=== PATIENT | female | born 1995 | race African-American/Black ===

== ENCOUNTER 2016-08-31 13:30 | Emergency (ER) | payer OTHER ==
[2016-08-31 14:56] LABS: PH,URINE 6.5 (4.5-8); URINE APPEARANCE Clear; URINE BILIRUBIN Negative (NEGATIVE); URINE GLUCOSE (UA) Negative (NEGATIVE); URINE KETONE Negative (NEGATIVE); URINE LEUK ESTERASE Negative (NEGATIVE); URINE NITRITE Negative (NEGATIVE); URINE PROTEIN Negative (NEGATIVE); URINE UROBILINOGEN 0.2 E.U/dl (0.2-1.0)
[2016-08-31 15:00] LABS: URINE BLOOD TRACE (NEGATIVE); URINE COLOR YELLOW
[2016-08-31 15:27] LABS: URINE MUCUS 1+; URINE WBC 0-3 (3-5)
[2016-08-31 15:33] VITALS: BP 125/75; PULSE 90; TEMP 98.3; BMI 27.4
--- NOTE | 2016-08-31 16:23 | PDOC ---
History of Present Illness - General Chief Complaint: Pain Stated Complaint: ABDOMINAL PAIN Time Seen by Provider: 08/31/16 16:05 - History of Present Illness Initial Comments: 08/31/16 16:18 21-year-old female with a past medical history of asthma Last menstrual period-one week ago normal and on time Patient is complaining of one month of intermittent diffuse crampy abdominal pain and abdominal "growling" off and on associated with one month of occasional intermittent diarrhea, which is not bloody, and not black and tarry, and is associated occasional nausea without vomiting She did see her primary care physician, Dr. Gary Weir, and was put on Prilosec without relief She denies any associated fevers or chills, she denies any localization of the pain She states that she feels a little tired and a little dehydrated She denies any dysuria urgency or frequency She denies any vaginal spotting or bleeding or discharge She denies any other complaints at this time, she denies any other recent intercurrent illnesses Remainder the review of systems is negative Patient states that she has an appointment with Dr. Brock's office-GI- October 10 Past History - Past Medical History Allergies/Adverse Reactions: Allergies Allergy/AdvReac Type Severity Reaction Status Date / Time No Known Allergies Allergy Verified 08/31/16 15:11 Home Medications: Ambulatory Orders Fluticasone Propionate [Flovent Diskus] 100 mcg IH ASDIR 11/15/15 Levonorgestrel-Ethin Estradiol [Sronyx] 1 each PO ASDIR 11/15/15 Bismuth Subsalicylate [Pepto-Bismol -] 524 mg PO DAILY 02/14/16 Omeprazole Magnesium [Prilosec] 10 mg PO DAILY 08/31/16 Asthma: Yes GI Disorders: Yes (ACID REFLUX) Suicide Attempt (Hx): No - Immunization History Immunization Up to Date: Yes - Psycho/Social/Smoking Cessation Hx Anxiety: No Suicidal Ideation: No Smoking Status: No Smoking History: Never smoked Have you smoked in the past 12 months: No Number of Cigarettes Smoked Daily: 0 Information on smoking cessation initiated: No Hx Alcohol Use: No Drug/Substance Use Hx: No Substance Use Type: None Review of Systems - Review of Systems Able to Perform ROS?: Yes Comments:: 08/31/16 16:22 12 point review of systems is as per history of present illness and otherwise negative *Physical Exam - Vital Signs Last Vital Signs Temp Pulse Resp BP Pulse Ox 98.3 F 90 16 125/75 100 08/31/16 14:10 08/31/16 14:10 08/31/16 14:10 08/31/16 14:10 08/31/16 14:10 - Physical Exam Comments: 08/31/16 16:22 Physical exam Last Vital Signs Temp Pulse Resp BP Pulse Ox 98.3 F 90 16 125/75 100 08/31/16 14:10 08/31/16 14:10 08/31/16 14:10 08/31/16 14:10 08/31/16 14:10 GENERAL: The patient is awake, alert, and fully oriented, and in no apparent distress. HEAD: Normal with no signs of trauma. EYES: Sclera anicteric, conjunctiva normal ENT: Mucous membranes slightly dry NECK: Normal range of motion, supple LUNGS: Breath sounds equal, clear to auscultation bilaterally. No wheezes, and no crackles. HEART: Regular rate and rhythm, normal S1 and S2 without murmur, rub or gallop. ABDOMEN: Soft, nontender, normoactive bowel sounds. No guarding, no rebound. No masses appreciated. There is minimal upper midepigastric and minimal suprapubic tenderness to palpation without guarding or rebound There is no other abdominal tenderness at all There is no hepatosplenomegaly There is no CVA tenderness EXTREMITIES: Normal range of motion, no edema. No clubbing or cyanosis. No cords, erythema, or tenderness. NEUROLOGICAL: Cranial nerves II through XII grossly intact. Normal speech, normal gait. PSYCH: Normal mood, normal affect. SKIN: Warm, Dry, normal turgor, no rashes or lesions noted. 08/31/16 16:24 ED Treatment Course - LABORATORY CBC & Chemistry Diagram: 08/31/16 16:34 08/31/16 16:34 - ADDITIONAL ORDERS Additional order review: Laboratory Results 08/31/16 14:10 Urine Color Yellow Urine Appearance Clear Urine pH 6.5 Ur Specific [place] 1.020 Urine Protein Negative Urine Glucose (UA) Negative Urine Ketones Negative Urine Blood Trace H Urine Nitrite Negative Urine Bilirubin Negative Urine Urobilinogen 0.2 e.u/dl Ur Leukocyte Esterase Negative Urine RBC 3-5 Urine WBC 0-3 Ur Epithelial Cells 5-8 Urine Mucus 1+ Urine HCG, Qual Negative Medical Decision Making - Medical Decision Making 08/31/16 16:27 Will hydrate, and check electrolytes Chronic intermittent abdominal pain and chronic intermittent diarrhea I called Dr. Brock's office They will move her appointment up to September 02 at 2:45 PM 08/31/16 17:48 Patient feeling much better after 1 L of normal saline Laboratory Results - last 24 hr 08/31/16 08/31/16 08/31/16 14:10 16:34 16:34 WBC 6.1 RBC 4.53 Hgb 12.1 Hct 37.4 MCV 82.6 MCHC 32.3 RDW 13.1 Plt Count 399 MPV 7.5 Sodium 135 L Potassium 4.4 Chloride 102 Carbon Dioxide 28 Anion Gap 5 L BUN 13 Creatinine 0.8 Creat Clearance w eGFR > 60 Random Glucose 77 Calcium 8.8 Magnesium 1.9 Total Bilirubin 0.5 D AST 17 ALT 12 Alkaline Phosphatase 46 D Total Protein 6.7 Albumin 3.3 L Lipase 17 L Urine Color Yellow Urine Appearance Clear Urine pH 6.5 Ur Specific [place] 1.020 Urine Protein Negative Urine Glucose (UA) Negative Urine Ketones Negative Urine Blood Trace H Urine Nitrite Negative Urine Bilirubin Negative Urine Urobilinogen 0.2 e.u/dl Ur Leukocyte Esterase Negative Urine RBC 3-5 Urine WBC 0-3 Ur Epithelial Cells 5-8 Urine Mucus 1+ Urine HCG, Qual Negative Impression-chronic intermittent diarrhea and chronic intermittent abdominal cramping Patient has appointment now with GI on 09/02 *DC/Admit/Observation/Transfer Diagnosis at time of Disposition: Abdominal cramping, Intermittent diarrhea - Discharge Dispostion Disposition: HOME Condition at time of disposition: Good - Referrals Referrals: Samson Almodovar MD [Staff Physician] - - Patient Instructions Printed Discharge Instructions: Diarrhea, DI for Abdominal Pain-Adult Additional Instructions: Rest, increase fluids BRAT diet - bananas/rice/applesauce/tea-this may prevent some of the diarrhea Please follow-up with Dr Brock - you have an appointment on September 02 at 2: 45pm Followup with your primary care physician in 24-48 hours Return immediately if you worsen in any way - Post Discharge Activity Work/School Note: Back to Work
[2016-08-31] MEDS ORDERED: SODIUM CHLORIDE 1,000 ML IV SCH (16:30)
[2016-08-31 17:05] LABS: MCH 26.7 pg (25.7-33.7); MCHC 32.3 g/dl (32.0-36.0); MEAN CELL VOLUME 82.6 fl (80-96); MEAN PLT VOLUME 7.5 fl (7.5-11.1); PLATELET COUNT 399 K/MM3 (134-434); RDW 13.1 % (11.6-15.6); WHITE BLOOD COUNT 6.1 K/mm3 (4.0-10.0)
[2016-08-31 17:12] LABS: ALBUMIN 3.3 g/dl (3.5-5.0); ALK PHOS 46 U/L (32-92); ANION GAP 5 (8-16); BILIRUBIN,TOTAL 0.5 mg/dl (0.2-1.0); CALCIUM 8.8 mg/dl (8.4-10.2); CO2 28 mmol/L (22-28); CREATININE 0.8 mg/dl (0.6-1.3); GLUCOSE,RANDOM 77 mg/dl (74-106); MAGNESIUM 1.9 mg/dL (1.8-2.4); SGOT/AST 17 U/L (10-42); SGPT/ALT 12 U/L (10-40); TOT PROT 6.7 g/dl (6.4-8.3)
== END 2016-08-31 18:16 | disposition home or self-care (01) ==
LOC: FER 13:30
DX: R10.9 Unspecified abdominal pain (principal); R19.7 Diarrhea, unspecified; J45.909 Unspecified asthma, uncomplicated; K21.9 Gastro-esophageal reflux disease without esophagitis
CPT/HCPCS: 36415; 80053; 81003; 81015; 83690; 83735; 84703; 85027; 87086; 99283-25

== ENCOUNTER 2017-03-22 12:59 | Emergency (ER) | payer OTHER ==
[2017-03-22 13:13] VITALS: BP 118/75; PULSE 86; TEMP 99.3; BMI 28.1
[2017-03-22] MEDS ORDERED: FLUCONAZOLE 50 MG TABLET PO ONE (13:21)
[2017-03-22 13:23] LABS: URINE APPEARANCE Slightly; URINE BILIRUBIN Negative (NEGATIVE); URINE BLOOD 1+ (NEGATIVE); URINE GLUCOSE (UA) Negative (NEGATIVE); URINE KETONE Negative (NEGATIVE); URINE NITRITE Negative (NEGATIVE); URINE PROTEIN Trace (NEGATIVE)
[2017-03-22] MEDS ORDERED: FLUCONAZOLE 150 MG TABLET PO ONE (13:23)
[2017-03-22 13:26] LABS: URINE COLOR YELLOW; URINE LEUK ESTERASE 3+ (NEGATIVE)
--- NOTE | 2017-03-22 13:28 | PDOC ---
History of Present Illness - General Chief Complaint: Vaginal Sxs Stated Complaint: VAGINAL ITCHING Time Seen by Provider: 03/22/17 13:07 History Source: Patient Exam Limitations: No Limitations - History of Present Illness Travel History: No Initial Comments: 03/22/17 13:24 21 yF no pmhx presents with vaginal itching/burning and mild dysuria x 2 weeks, since her last period. Pt deneis any abdominal pain, fever/chills, n/v, diarrhea. Pt has noticed incrased whitish discharge in her panties recently. Pt has not used any medications. Pt states she did start using a new type of truck cleaner about 2 weeks ago. pt in a monogamous relationship with 1 partner, does not use protection regularly. Past History - Past Medical History Allergies/Adverse Reactions: Allergies Allergy/AdvReac Type Severity Reaction Status Date / Time No Known Allergies Allergy Verified 03/22/17 13:05 Home Medications: Ambulatory Orders Fluticasone Propionate [Flovent Diskus] 100 mcg IH ASDIR 11/15/15 Levonorgestrel-Ethin Estradiol [Sronyx] 1 each PO ASDIR 11/15/15 Bismuth Subsalicylate [Pepto-Bismol -] 524 mg PO DAILY 02/14/16 Omeprazole Magnesium [Prilosec] 10 mg PO DAILY 08/31/16 Asthma: Yes GI Disorders: Yes (ACID REFLUX) Suicide Attempt (Hx): No - Reproductive History Is Patient Now?: No - Immunization History Immunization Up to Date: Yes - Psycho/Social/Smoking Cessation Hx Anxiety: No Suicidal Ideation: No Smoking Status: No Smoking History: Never smoked Have you smoked in the past 12 months: No Number of Cigarettes Smoked Daily: 0 Information on smoking cessation initiated: No Hx Alcohol Use: No Drug/Substance Use Hx: No Substance Use Type: None Review of Systems - Review of Systems Able to Perform ROS?: Yes Comments:: 03/22/17 13:25 Constitutional - no reported Fever, Chills, Abd/GI: no reported abd pain, nausea, vomiting, blood per rectum, melena, diarrhea : +dysuria, vaginal itching/burning, discharge no reported frequency, skin - no reported bruising, erythema, rash *Physical Exam - Vital Signs Last Vital Signs Temp Pulse Resp BP Pulse Ox 99.3 F 86 18 118/75 99 08/07/17 13:00 03/22/17 13:00 03/22/17 13:00 03/22/17 13:00 03/22/17 13:00 - Physical Exam Comments: 03/22/17 13:27 GENERAL: The patient is awake, alert, and fully oriented, Nontoxic - in no acute distress. ABDOMEN: Soft, nontender, normoactive bowel sounds. No guarding, no rebound. No CVA tenderness PULLER OUT: +whitish chunky discharge in vaginal vault, mild erythema, no CMT, adnexal tenderness, no rashes otherwise, no blood present Medical Decision Making - Medical Decision Making 03/22/17 13:28 suspect yeast infection, possibly related to recent change in her truck cleaner will give diflucan will ck UA to r/o UTI if not improved will hav pt fu with PMD 03/22/17 13:48 pts UA shows +3LE, suspect secondary to yeast infection will await cultures. upscale security officer if sypmoms not improved. I discussed the physical exam findings, ancillary test results and final diagnoses with the patient. I answered all of the patient's questions. The patient was satisfied with the care received and felt comfortable with the discharge plan and treatment plan. The patient will call their primary care physician within 24 hours to arrange follow-up and will return to the Emergency Department with any new, persistent or worsening symptoms. *DC/Admit/Observation/Transfer Diagnosis at time of Disposition: Yeast infection - Discharge Dispostion Disposition: HOME Condition at time of disposition: Improved Admit: No - Referrals Referrals: [facility] [Provider Group] - Patient Instructions Printed Discharge Instructions: DI for Vaginal Yeast Infection Additional Instructions: Return to the emergency department immediately with ANY new, persistent or worsening symptoms. Stop using your new truck cleaner. You MUST call and follow up with your research chef in 2-3 for further evaluation of your symptoms if they are not improved. Results were discussed with you. Please make sure your doctor reviews the results of your emergency evaluation.
[2017-03-22 14:55] LABS: URINE BACTERIA FEW /hpf (NEGATIVE); URINE WBC 50-80 (3-5)
== END 2017-03-22 13:55 | disposition home or self-care (01) ==
LOC: FER 12:59
DX: B37.9 Candidiasis, unspecified (principal); K21.9 Gastro-esophageal reflux disease without esophagitis
CPT/HCPCS: 81003; 81015; 84703; 87086; 99284-25

== ENCOUNTER 2018-04-08 18:18 | Emergency (ER) | payer OTHER ==
[2018-04-08 18:49] VITALS: BP 112/71; PULSE 90; TEMP 99; BMI 34.0
--- NOTE | 2018-04-08 19:42 | PDOC ---
History of Present Illness - General History Source: Patient Exam Limitations: No Limitations - History of Present Illness Initial Comments: 04/08/18 19:44 The patient is a 22 year old female, with no significant PMH, who presents to the emergency department with abdomen pain that began 3 weeks ago. The patient states the intermittent stabbing abdomen pain is located to the LUQ. The patient state pain is exacerbated when sitting and alleviated with rest. The patient reports pain is not varied with meals. The patient mentions she is 11 weeks and last menstrual period was in January. The patient states she her last ultrasound was done on 03/26/18, no abnormal finding noted. The patient denies chest pain, shortness of breath, headache and dizziness. Denies fever, chills, nausea, vomit, diarrhea and constipation. Denies dysuria, frequency, urgency and hematuria. Allergies: NKDA Past surgical history:None reported Social history: None reported PCP: None reported <Veronica Schwartz - Last Filed: 04/08/18 19:51> <Luna Hayes - Last Filed: 04/08/18 21:27> - General Chief Complaint: Pain Stated Complaint: UPPER LEFT ABD PAIN Time Seen by Provider: 04/08/18 19:26 Past History <Veronica Schwartz - Last Filed: 04/08/18 19:51> - Past Medical History Asthma: Yes COPD: No GI Disorders: Yes (ACID REFLUX) Other medical history: 11 WEEKS - Immunization History Immunization Up to Date: Yes - Suicide/Smoking/Psychosocial Hx Smoking Status: No Smoking History: Never smoked Have you smoked in the past 12 months: No Number of Cigarettes Smoked Daily: 0 Information on smoking cessation initiated: No Hx Alcohol Use: No Drug/Substance Use Hx: No Substance Use Type: None <Luna Hayes - Last Filed: 04/08/18 21:27> - Past Medical History Allergies/Adverse Reactions: Allergies Allergy/AdvReac Type Severity Reaction Status Date / Time No Known Allergies Allergy Verified 04/08/18 18:19 Home Medications: Ambulatory Orders Acetaminophen 325 mg PO QID PRN #60 tablet 04/08/18 Multivitamin [Daily Multiple Vitamin] 1 each PO DAILY 04/08/18 Review of Systems - Review of Systems Able to Perform ROS?: Yes Comments:: 04/08/18 19:44 GENERAL/CONSTITUTIONAL: No fever or chills. No weakness. HEAD, EYES, EARS, NOSE AND THROAT: No change in vision. No ear pain or discharge. No sore throat. CARDIOVASCULAR: No chest pain or shortness of breath. RESPIRATORY: No cough, wheezing, or hemoptysis. GASTROINTESTINAL:+LUQ pain. No nausea, vomiting, diarrhea or constipation. GENITOURINARY: No dysuria, frequency, or change in urination. MUSCULOSKELETAL: No joint or muscle swelling or pain. No neck or back pain. SKIN: No rash NEUROLOGIC: No headache, vertigo, loss of consciousness, or change in strength/ sensation. ENDOCRINE: No increased thirst. No abnormal weight change. HEMATOLOGIC/LYMPHATIC: No anemia, easy bleeding, or history of blood clots. ALLERGIC/IMMUNOLOGIC: No hives or skin allergy. <Veronica Schwartz - Last Filed: 04/08/18 19:51> *Physical Exam - Vital Signs Last Vital Signs Temp Pulse Resp BP Pulse Ox 99 F 90 20 112/71 100 04/08/18 18:19 04/08/18 18:19 04/08/18 18:19 04/08/18 18:19 04/08/18 18:19 - Physical Exam Comments: 04/08/18 19:45 GENERAL: Awake, alert, and fully oriented, in no acute distress HEAD: No signs of trauma EYES: PERRLA, EOMI, sclera anicteric, conjunctiva clear ENT: Auricles normal inspection, hearing grossly normal, nares patent, oropharynx clear without exudates. Moist mucosa NECK: Normal ROM, supple, no lymphadenopathy, JVD, or masses LUNGS: Breath sounds equal, clear to auscultation bilaterally. No wheezes, and no crackles HEART: Regular rate and rhythm, normal S1 and S2, no murmurs, rubs or gallops ABDOMEN: +Mild LUQ tenderness to palpation with no rebound or involuntary guarding. No mass, splenomegaly or organomegaly. No tenderness to the left costal margin. Pain not associated with flexion of the rectus muscle. EXTREMITIES: Normal range of motion, no edema. No clubbing or cyanosis. No cords, erythema, or tenderness NEUROLOGICAL: Cranial nerves II through XII grossly intact. Normal speech, normal gait SKIN: Warm, Dry, normal turgor, no rashes or lesions noted. <Veronica Schwartz - Last Filed: 04/08/18 19:51> - Vital Signs Last Vital Signs Temp Pulse Resp BP Pulse Ox 99 F 90 20 112/71 100 04/08/18 18:19 04/08/18 18:19 04/08/18 18:19 04/08/18 18:19 04/08/18 18:19 <Luna Hayes - Last Filed: 04/08/18 21:27> *DC/Admit/Observation/Transfer - Attestations Scribe Attestion: 04/08/18 19:45 Documentation prepared by Veronica Schwartz, acting as family practice medical doctor for Luna Hayes MD. <Veronica Schwartz - Last Filed: 04/08/18 19:51> <Luna Hayes - Last Filed: 04/08/18 21:27> Diagnosis at time of Disposition: Abdominal discomfort in left upper quadrant, First trimester - Discharge Dispostion Disposition: HOME Condition at time of disposition: Stable - Patient Instructions Printed Discharge Instructions: Managing Symptoms of , DI for Abdominal Pain-Adult Additional Instructions: Acetaminophen as needed for pain Consider antacids as needed Follow-up with your news director tomorrow as previously planned Return to ER if you have severe pain/vomiting/fever
[2018-04-08 19:50] LABS: PH,URINE 6.5 (4.5-8); URINE APPEARANCE Clear; URINE BILIRUBIN Negative (NEGATIVE); URINE COLOR Yellow; URINE GLUCOSE (UA) Negative (NEGATIVE); URINE KETONE Negative (NEGATIVE); URINE NITRITE Negative (NEGATIVE); URINE PROTEIN Negative (NEGATIVE); URINE UROBILINOGEN 0.2 (0.2-1.0)
[2018-04-08 19:51] LABS: URINE LEUK ESTERASE 2+ (NEGATIVE)
[2018-04-08 19:53] LABS: HCG,QUALITATIVE URINE Positive
[2018-04-08 19:58] LABS: EPI CELLS FEW /HPF; URINE BACTERIA FEW /hpf (NEGATIVE)
== END 2018-04-08 21:32 | disposition home or self-care (01) ==
LOC: FER 18:18
DX: O26.891 Other specified pregnancy related conditions, first trimester (principal); Z3A.11 11 weeks gestation of pregnancy; R10.12 Left upper quadrant pain
CPT/HCPCS: 76705-TC; 81003; 81015; 84703; 87086; 99282-25

== ENCOUNTER 2019-02-10 21:13 | Emergency (ER) | payer OTHER ==
[2019-02-10 21:24] VITALS: BP 127/86; PULSE 99; TEMP 99.1; BMI 36.0
[2019-02-10 23:09] LABS: EPITHELIAL CELLS FEW /hpf
--- NOTE | 2019-02-11 03:41 | PDOC ---
Documentation entered by Sandra Gonzalez SCRIBE, acting as scribe for Luna Hayes MD. Luna Hayes MD: This documentation has been prepared by the scribeCarlos Natalie, SCRIBE, under my direction and personally reviewed by me in its entirety. I confirm that the documentation accurately reflects all work, treatment, procedures, and medical decision making performed by me. History of Present Illness - General Chief Complaint: Pain Stated Complaint: THROAT/ABD PAIN Time Seen by Provider: 02/10/19 21:15 History Source: Patient Exam Limitations: No Limitations - History of Present Illness Initial Comments: This 23-year-old woman with a history of asthma and GERD presents with 3 day history of diarrhea with mild nausea and low-grade fever. Patient presents because she has recurrent diarrhea with ingestion of any liquid or food and has burning pain in her throat and epigastrium. Patient has a history of GERD but no longer takes H2 monica. She states that she took Zantac (OTC) once yesterday. No known sick contacts although 4-month-old son attends day care and the patient is employed in a hospital setting. No recent travel Past History - Past Medical History Allergies/Adverse Reactions: Allergies Allergy/AdvReac Type Severity Reaction Status Date / Time No Known Allergies Allergy Verified 04/08/18 18:19 Home Medications: Ambulatory Orders Norgestimate-Ethinyl Estradiol [Norg-Ethin Estra 0.25-0.035 mg] 1 each PO DAILY 02/10/19 Asthma: Yes COPD: No GI Disorders: Yes (ACID REFLUX) - Immunization History Immunization Up to Date: Yes - Suicide/Smoking/Psychosocial Hx Smoking Status: No Smoking History: Never smoked Have you smoked in the past 12 months: No Number of Cigarettes Smoked Daily: 0 Hx Alcohol Use: No Drug/Substance Use Hx: No Substance Use Type: None Review of Systems - Review of Systems Able to Perform ROS?: Yes Comments:: 12 point review of systems is negative except for what is noted in the history of present illness *Physical Exam - Vital Signs Last Vital Signs Temp Pulse Resp BP Pulse Ox 99.1 F 99 H 18 127/86 100 02/10/19 21:18 02/10/19 21:18 02/10/19 21:18 02/10/19 21:18 02/10/19 21:18 - Physical Exam Comments: GENERAL: Adult female, alert and oriented 3 in mild distress secondary to abdominal cramping HEAD: Normal with no signs of trauma. EYES: PERRLA, EOMI, sclera anicteric, conjunctiva clear. ENT: Ears normal, nares patent, oropharynx mildy erythematous without exudate. Dry mucous membranes. NECK: Normal range of motion, supple without lymphadenopathy, JVD, or masses. LUNGS: Breath sounds equal, clear to auscultation bilaterally. No wheezes, and no crackles. HEART:Regular rate and rhythm, normal S1 and S2 without murmur, rub or gallop. ABDOMEN:.normal bowel sounds ; Mild generalized tenderness without rebound or involuntary guarding EXTREMITIES: Normal range of motion, no edema. No clubbing or cyanosis. No erythema, or tenderness. NEUROLOGICAL: Cranial nerves II through XII grossly intact. Normal speech. No focal neurological deficits. MUSCULOSKELETAL: Back non-tender to palpation, no CVA tenderness SKIN: Warm, Dry, normal turgor, no rashes or lesions noted. 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 Also, the patient states that she had felt similar symptoms in the past when she had a urinary tract infection ( had no dysuria/hematuria/urinary frequency at that time either). She requested that a urinalysis be performed. UA/PGU ordered. Quick strep negative; throat culture pending Urinalysis essentially normal except for a few white blood cells/red blood cells per high-power field. LE/nitrate negative. PGU negative. No evidence of urinary tract infection on urinalysis. Clinical presentation consistent with viral syndrome/gastroenteritis. The patient should restart her H2 monica for the next few weeks, since her reflux symptoms appear to have recurred during this time of gastroenteritis. Also, she should maintain a bland diet with rice/potato/bread/banana to bind stool *DC/Admit/Observation/Transfer Diagnosis at time of Disposition: Viral gastroenteritis GERD (gastroesophageal reflux disease) Qualifiers: Esophagitis presence: without esophagitis Qualified Code(s): K21.9 - Gastro- esophageal reflux disease without esophagitis - Discharge Dispostion Disposition: HOME Condition at time of disposition: Stable - Referrals Referrals: Tommie Tucker MD [Primary Care Provider] - - Patient Instructions Printed Discharge Instructions: Viral Gastroenteritis Additional Instructions: continue Zantac daily bland diet; include rice/potatoes,etc in your diet continue drinking plenty of water followup with your doctor within 3-4 days return to ER if you have worsening pain/fever or develop vomiting - Post Discharge Activity
== END 2019-02-10 23:34 | disposition home or self-care (01) ==
LOC: FER 21:13
DX: A08.4 Viral intestinal infection, unspecified (principal); K21.9 Gastro-esophageal reflux disease without esophagitis; J45.909 Unspecified asthma, uncomplicated
CPT/HCPCS: 81003; 81015; 84703; 87070; 87880; 99282-25

== ENCOUNTER 2019-07-10 10:29 | Emergency (ER) | payer OTHER ==
[2019-07-10 10:46] VITALS: BMI 29.7
--- NOTE | 2019-07-10 10:54 | PDOC ---
History of Present Illness - General Chief Complaint: Pain Stated Complaint: ABD PAIN/RT LEG PAIN Time Seen by Provider: 07/10/19 10:51 - History of Present Illness Initial Comments: 07/10/19 11:22 Ms. Desouza is a 24 y/o woman with no reported pmhx presenting with RLE which first began 2 weeks ago. Per the patient she started having this RLE pain that is 7/10 in intensity which radiates to her back 2 weeks ago, it briefly resolved for 1 week,and then returned this week. The pt denies doing any strenuous exercise and cannot recall anything different in her day that may have caused her symptoms. She says she took 800mg of motrin last night which helped but she woke up in pain and took another 800mg without relief. She says the pain is made worse by sitting and laying down and improved by standing. On ROS the pt endorses 1 episode of vomiting, and denies CP, SOB, heart palpations, generalized or focal weakness, swelling in her legs, dysuria, hematuria, hematochezia, melena, diarrhea, constipation, paresthesias or numbness. Past History - Past Medical History Allergies/Adverse Reactions: Allergies Allergy/AdvReac Type Severity Reaction Status Date / Time No Known Allergies Allergy Verified 07/10/19 10:42 Home Medications: Ambulatory Orders Norgestimate-Ethinyl Estradiol [Norg-Ethin Estra 0.25-0.035 mg] 1 each PO DAILY 02/10/19 Asthma: Yes COPD: No GI Disorders: Yes (ACID REFLUX) - Immunization History Immunization Up to Date: Yes - Psycho Social/Smoking Cessation Hx Smoking Status: No Smoking History: Never smoked Have you smoked in the past 12 months: No Number of Cigarettes Smoked Daily: 0 Hx Alcohol Use: No Drug/Substance Use Hx: No Substance Use Type: None Review of Systems - Review of Systems Constitutional: No: Chills, Diaphoresis, Loss of Appetite, Weakness HEENTM: No: Recent change in vision, Ear Pain, Throat Pain Respiratory: No: Cough, Shortness of Breath Cardiac (ROS): No: Chest Pain, Lightheadedness, Palpitations ABD/GI: No: Abdominal Distended, Blood Streaked Bowels, Constipated, Diarrhea : No: Burning, Dysuria, Discharge, Hematuria Musculoskeletal: Yes: Back Pain, Muscle Pain. No: Joint Pain, Joint Swelling, Muscle Weakness Integumentary: No: Dryness, Erythema, Rash Neurological: No: Headache, Numbness, Tingling, Weakness All Other Systems: Reviewed and Negative *Physical Exam - Vital Signs Last Vital Signs Temp Pulse Resp BP Pulse Ox 98.5 F 96 H 18 120/80 96 07/10/19 10:43 07/10/19 10:43 07/10/19 10:43 07/10/19 10:43 07/10/19 10:43 - Physical Exam General Appearance: Yes: Nourished, Appropriately Dressed. No: Apparent Distress HEENT: positive: EOMI, FANY, Normal ENT Inspection Neck: positive: Trachea midline, Supple. negative: Tender Respiratory/Chest: positive: Lungs Clear, Normal Breath Sounds. negative: Respiratory Distress, Accessory Muscle Use Cardiovascular: positive: Regular Rhythm, Regular Rate, S1, S2 Gastrointestinal/Abdominal: positive: Normal Bowel Sounds, Flat, Soft. negative : Tender Musculoskeletal: positive: Normal Inspection. negative: CVA Tenderness, Vertebral Tenderness Integumentary: positive: Normal Color, Dry, Warm Neurologic: positive: accountant certified public II-XII NML intact, Fully Oriented, Alert, Normal Mood/ Affect, Normal Response, Other (positive striaght leg raise test on RLE) Medical Decision Making - Medical Decision Making 07/10/19 12:14 Ms. Desouza is a 24 y/o woman with no reported pmhx presenting with RLE which first began 2 weeks ago. Per the patient she started having this RLE pain that is 7/10 in intensity which radiates to her back 2 weeks ago, it briefly resolved for 1 week,and then returned this week. Given her relatively normal physical exam and her positive straight leg raise test it is most likely her pain is 2/2 sciatica. There is low suspicion for DVT in this patient given that she is a non-smoker <35 on OCPs who has not traveled recently. Additionally she does not have unilateral leg swelling or tenderness to palpation of her RLE. Will obtain a UA and urine test Will order ibuprofen for pain and then re-asses pt 07/10/19 13:50 Pt reassessed, says pain is mildly improved. Likely stable for discharge home with plans to follow up wither her PCP. Discharge - Discharge Information Problems reviewed: Yes Clinical Impression/Diagnosis: Leg pain, right Condition: Good Disposition: HOME - Admission No - Follow up/Referral Referrals: Richar Solano MD [Primary Care Provider] - - Patient Discharge Instructions Patient Printed Discharge Instructions: DI for Sciatica, DI for Back Pain With Sciatica Additional Instructions: You came to the emergency department because you had pain in the back of your right thigh. On physical exam your pain was reproducible when we raised your straightened right leg. This indicates the cause of your problem is most likely nerve pain (sciatica). You can take NSAIDs (ibuprofen, aspirin, up to 2400mg/ day) to help with your pain. If you experience worsening sx or sx such as numbness, worse pain, or tingling in your right leg, weakness of your right leg, bowel/ bladder incontinence, worsening abdominal pain, nausea or vomiting, please return to the ED immediately. - Post Discharge Activity
--- NOTE | 2019-07-10 13:01 | PDOC ---
Attending Attestation - Resident Resident Name: Herlinda Willard - ED Attending Attestation I have performed the following: I have examined & evaluated the patient, The case was reviewed & discussed with the resident, I agree w/resident's findings & plan - HPI HPI: 07/10/19 12:53 Healthy 24-year-old female presents with atraumatic right buttock/right lower extremity pain for 4-5 days. no injury/strain, had h/o similar pain last month but resolved spontaneously. now returned 4d ago. temporary relief with ibuprofen , no /INTERNATIONAL ORGANIZER complaints. due for menses in 2 days, no h/o ovarian cysts/torsion. - Physicial Exam PE: 07/10/19 13:01 Vital signs normal, urine negative Well-appearing and comfortable in stretcher No midline spine tenderness, no right low back tenderness. 5 out of 5 flexion/extension of bilateral hips/knees/ankle/toes. Sensation intact, neurovascular intact with 2+ distal pulses. Abdomen benign, no guarding or rebound, no CVA tenderness, no palpable masses - Medical Decision Making 07/10/19 13:02 24-year-old female with atraumatic right low back/buttock pain radiating posteriorly to the thigh, most consistent with sciatica. Neurologically intact , no evidence of or INTERNATIONAL ORGANIZER etiology. Check urinalysis and urine No indication for emergent imaging Recommend restricted NSAID use given history of gastritis and currently on PPI, recommended physical therapy exercises and pain management/spine follow-up if symptoms persist. Understands return criteria.
[2019-07-10 14:14] LABS: EPI CELLS 28.9 /HPF (0-5/HPF); HYALINE CASTS 69 /lpf (0-8); URINE APPEARANCE CLOUDY; URINE BACTERIA 639.8 /hpf (NEGATIVE); URINE BILIRUBIN NEGATIVE (NEGATIVE); URINE COLOR DK YELLOW; URINE GLUCOSE (UA) NEGATIVE (NEGATIVE); URINE KETONE 1+ (NEGATIVE); URINE LEUK ESTERASE 2+ (NEGATIVE); URINE NITRITE NEGATIVE (NEGATIVE); URINE PROTEIN 2+ (NEGATIVE); URINE RBC 8 /hpf (0-4); URINE UROBILINOGEN 0.2 mg/dL (0.2-1.0); URINE WBC 105 /hpf (0-5)
[2019-07-10 14:38] VITALS: BP 129/79; PULSE 104; TEMP 98.1
== END 2019-07-10 14:38 | disposition home or self-care (01) ==
LOC: JER 10:29
DX: M54.41 Lumbago with sciatica, right side (principal); J45.909 Unspecified asthma, uncomplicated; K21.9 Gastro-esophageal reflux disease without esophagitis
CPT/HCPCS: 81003; 84703; 87086; 99283-25

== ENCOUNTER 2019-09-20 11:05 | Emergency (ER) | payer OTHER ==
[2019-09-20 11:25] VITALS: BP 115/70; PULSE 100; TEMP 99.1; BMI 30.5
[2019-09-20 13:14] LABS: BASO % 0.4 % (0-2.0); EOS % 0.6 % (0-4.5); HEMATOCRIT 31.7 % (32.4-45.2); HEMOGLOBIN 10.3 GM/dL (10.7-15.3); LYMPH % 14.5 % (8-40); MCH 26.2 pg (25.7-33.7); MCHC 32.3 g/dl (32.0-36.0); MEAN PLT VOLUME 7.2 fl (7.5-11.1); MONO % 6.9 % (3.8-10.2); NEUT % 77.6 % (42.8-82.8); PLATELET COUNT 481 K/MM3 (134-434); RBC 3.92 M/mm3 (3.60-5.2); RDW 16.2 % (11.6-15.6); WHITE BLOOD COUNT 10.3 K/mm3 (4.0-10.0)
[2019-09-20 13:25] LABS: INR 1.11 (0.83-1.09); PROTHROMBIN TIME (PATIENT) 13.1 SEC (9.7-13.0)
[2019-09-20 13:52] LABS: ALK PHOS 83 U/L (45-117); ANION GAP 7 MMOL/L (8-16); BILIRUBIN,TOTAL 0.3 mg/dL (0.2-1); BLOOD UREA NITROGEN 12.3 mg/dL (7-18); CHLORIDE 104 mmol/L (98-107); CO2 28 mmol/L (21-32); CREATININE 0.7 mg/dL (0.55-1.3); GLUCOSE,RANDOM 96 mg/dL (74-106); POTASSIUM 3.6 mmol/L (3.5-5.1); SGOT/AST 12 U/L (15-37); SGPT/ALT 13 U/L (13-61); SODIUM 139 mmol/L (136-145); TOT PROT 7.7 g/dl (6.4-8.2)
--- NOTE | 2019-09-20 13:54 | EKG ---
Test Reason : Blood Pressure : / mmHG Vent. Rate : 100 BPM Atrial Rate : 100 BPM P-R Int : 128 ms QRS Dur : 076 ms QT Int : 358 ms P-R-T Axes : 069 062 033 degrees QTc Int : 461 ms NORMAL SINUS RHYTHM POSSIBLE LEFT ATRIAL ENLARGEMENT CANNOT RULE OUT ANTERIOR INFARCT , AGE UNDETERMINED ABNORMAL ECG WHEN COMPARED WITH ECG OF 12-APR-2015 20:38, NO SIGNIFICANT CHANGE WAS FOUND Confirmed by Hunter Sheridan ([id number]) on 09/20/2019 1:54:02 PM Referred By: Confirmed By:Hunter Sheridan
[2019-09-20] MEDS ORDERED: IBUPROFEN 600 MG TABLET (FP) PO ONE ×2 (15:09→15:13)
--- NOTE | 2019-09-20 15:13 | PDOC ---
History of Present Illness - General Chief Complaint: Cold Symptoms Stated Complaint: BODY ACHES Time Seen by Provider: 09/20/19 11:40 - History of Present Illness Initial Comments: 09/20/19 15:10 24-year-old female with upper respiratory symptoms and chest pain x4 days Past History - Past Medical History Allergies/Adverse Reactions: Allergies Allergy/AdvReac Type Severity Reaction Status Date / Time No Known Allergies Allergy Verified 09/20/19 11:18 Home Medications: Ambulatory Orders Ibuprofen [Motrin -] 600 mg PO TID #30 tablet 09/20/19 Asthma: Yes COPD: No GI Disorders: Yes (ACID REFLUX) - Immunization History Immunization Up to Date: Yes - Psycho Social/Smoking Cessation Hx Smoking Status: No Smoking History: Never smoked Have you smoked in the past 12 months: No Number of Cigarettes Smoked Daily: 0 Hx Alcohol Use: No Drug/Substance Use Hx: No Substance Use Type: None Review of Systems - Review of Systems Constitutional: No: Fever HEENTM: Yes: Nose Congestion Respiratory: Yes: Cough Cardiac (ROS): Yes: Chest Pain *Physical Exam - Vital Signs Last Vital Signs Temp Pulse Resp BP Pulse Ox 99.1 F 100 H 18 115/70 100 09/20/19 11:18 09/20/19 11:18 09/20/19 11:18 09/20/19 11:18 09/20/19 11:18 - Physical Exam 09/20/19 15:11 GENERAL: The patient is awake, alert, and fully oriented, in no acute distress. HEAD: Normal with no signs of trauma. EYES: sclera anicteric, conjunctiva clear. ENT: Ears normal tympanic membranes normal oropharynx clear uvula midline NECK: Normal range of motion LUNGS: Breath sounds equal, clear to auscultation bilaterally. No wheezes, and no crackles. HEART: S1 and S2 without murmur, rub or gallop. ABDOMEN: Soft, nontender, normoactive bowel sounds. No guarding, no rebound. No masses. EXTREMITIES: Normal range of motion, no edema. No clubbing or cyanosis. No cords, erythema, or tenderness. NEUROLOGICAL: Cranial nerves II through XII grossly intact. PSYCH: Normal mood, normal affect. SKIN: Warm, Dry, normal turgor, no rashes or lesions noted. ED Treatment Course - LABORATORY CBC & Chemistry Diagram: 09/20/19 12:42 09/20/19 12:42 - ADDITIONAL ORDERS Additional order review: Laboratory Results 09/20/19 09/20/19 09/20/19 12:42 12:42 12:42 PT with INR 13.10 H INR 1.11 H D-Dimer 1957 H Sodium Potassium Chloride Carbon Dioxide Anion Gap BUN Creatinine Est GFR (CKD-EPI)AfAm Est GFR (CKD-EPI)NonAf Random Glucose Calcium Total Bilirubin AST ALT Alkaline Phosphatase Creatine Kinase Troponin I Total Protein Albumin Serum , Qual Negative 09/20/19 12:42 PT with INR INR D-Dimer Sodium 139 Potassium 3.6 Chloride 104 Carbon Dioxide 28 Anion Gap 7 L BUN 12.3 Creatinine 0.7 Est GFR (CKD-EPI)AfAm 138.59 Est GFR (CKD-EPI)NonAf 119.58 Random Glucose 96 Calcium 9.0 Total Bilirubin 0.3 AST 12 L ALT 13 Alkaline Phosphatase 83 Creatine Kinase 31 Troponin I < 0.02 Total Protein 7.7 Albumin 3.0 L Serum , Qual 09/20/19 12:42 RBC 3.92 MCV 81.0 MCHC 32.3 RDW 16.2 H MPV 7.2 L Neutrophils % 77.6 Lymphocytes % 14.5 D Monocytes % 6.9 Eosinophils % 0.6 Basophils % 0.4 - RADIOLOGY Radiology Studies Ordered: Category Date Time Status CHEST CTA [CT] Stat CT Scan 09/20/19 13:42 Completed CHEST - PA [RAD] Stat Radiology 09/20/19 12:26 Completed SPINE-LUMBAR SACRAL [RAD] Stat Radiology 09/20/19 14:03 Ordered Medical Decision Making - Medical Decision Making 09/20/19 15:11 CT of the chest negative for PE lumbar spine x-rays no fracture trauma destructive process disc height is well-maintained throughout supportive care for costochondritis and viral upper respiratory symptoms Discharge - Discharge Information Problems reviewed: Yes Clinical Impression/Diagnosis: Costochondritis, Viral URI with cough Condition: Stable Disposition: HOME - Admission No - Additional Discharge Information Prescriptions: Ibuprofen [Motrin -] 600 mg PO TID #30 tablet - Follow up/Referral Referrals: Richar Solano MD [Primary Care Provider] - - Patient Discharge Instructions Patient Printed Discharge Instructions: DI for Viral Upper Respiratory Infection -- Adult Additional Instructions: Return to the emergency room for worsening symptoms. Tylenol and Motrin as directed for pain and without fail follow-up with your primary care physician in 1 to 2 days for further evaluation and treatment options. - Post Discharge Activity
== END 2019-09-20 15:24 | disposition home or self-care (01) ==
LOC: JERFT 11:05
DX: J06.9 Acute upper respiratory infection, unspecified (principal); M94.0 Chondrocostal junction syndrome [Tietze]; J45.909 Unspecified asthma, uncomplicated; K21.9 Gastro-esophageal reflux disease without esophagitis
CPT/HCPCS: 36415; 71045-TC-FY; 71275-TC; 72100-TC-FY; 80053; 82550; 84484; 84703; 85025; 85379; 85610; 87804; 93005; 93010; 99283-25; Q9967